=== PATIENT | female | born 1955 | race Caucasian/White ===

== ENCOUNTER 2018-11-18 15:10 | Inpatient (IN) ==
[2018-11-18] MEDS ORDERED: PHENERGAN IV PRN (15:43)
[2018-11-18] MEDS ORDERED: SODIUM CHLORIDE 0.9% INJ PRN (15:43)
[2018-11-18] MEDS: DUONEB (A & A) INH SCH ×3 (16:14→23:47)
[2018-11-18 16:29] LABS: BASO# 0.05 X1000 (0.0-0.2); BASO% 0.3 % (0.0-0.8); EOS# 1.03 X1000 (0.0-0.7); EOS% 6.6 % (0.0-10.0); HEMATOCRIT 42.1 % (37.0-47.0); IMM GRAN% 0.3 % (0.0-0.5); LYMPH# 1.55 X1000 (1.2-3.4); MCHC 33.3 g/dL (33-37); MCV 90.3 FL (81-99); MONO# 1.24 X1000 (0.11-0.59); MPV 9.8 FL (7.4-10.4); NEUT% 74.8 % (42.2-75.2); PLT 261 X1000 (130-400); RBC 4.66 XMIL (4.2-5.4); RDW 13.6 % (11.5-14.5); WBC 15.51 X1000 (4.8-10.8)
[2018-11-18 16:30] LABS: IMM GRAN# 0.04 X1000 (0.0-0.04)
[2018-11-18] MEDS: SOLU-MEDROL IV SCH (17:07)
[2018-11-18] MEDS: LOVENOX SUBQ SCH (17:08)
[2018-11-18] MEDS: LEVAQUIN 500 MG/D5W 500 MG/100 ML IVPB IV SCH (17:09)
[2018-11-18] MEDS: NS 1,000 ML IV SCH (17:09)
[2018-11-18 17:10] LABS: AGAP 16; BUN 16 mg/dL (8-22); CALCIUM 9.7 mg/dL (8.8-10.2); CHLORIDE 99 mmol/L (98-107); COSMO 277; CREATININE 0.6 mg/dL (0.5-0.9); ESTIMATED GFR > 60; GLUCOSE 95 mg/dL (70-104); POTASSIUM 4.2 mmol/L (3.5-5.1); SODIUM 138 mmol/L (136-145); TCO2 23 mmol/L (25-35)
[2018-11-18] MEDS: CELEBREX PO SCH (20:17)
[2018-11-18] MEDS: DESYREL PO PRN (20:17)
[2018-11-18] MEDS: TYLENOL PO PRN (20:17)
[2018-11-19] MEDS: SOLU-MEDROL IV SCH ×3 (00:15→16:47)
[2018-11-19] MEDS: DUONEB (A & A) INH SCH ×5 (02:48→21:40)
[2018-11-19] MEDS: SYNTHROID PO SCH (08:48)
[2018-11-19] MEDS: CELEBREX PO SCH ×3 (08:48→21:22)
[2018-11-19] MEDS: ESTRACE PO SCH (08:48)
[2018-11-19] MEDS: CELEXA PO SCH (08:49)
--- NOTE | 2018-11-19 08:58 | PROGRESS NOTE ---
DATE: 11/19/2018 SUBJECTIVE: Mrs. Russell was admitted to [facility] with acute respiratory failure with mycoplasma pneumonia. She is maintaining O2 saturations of 94% to 95% on 2 L of O2. She reports that she is breathing a little bit better this morning. She has less wheezing on exam. She continues with a persistent nonproductive cough and pleuritic chest pain. She feels very anxious and jittery on the nebulizer treatments. OBJECTIVE: Vital Signs: Temperature 98 degrees, pulse 106, respirations 16, BP 145/75. CV: Tachycardic. Regular S1, S2. Lungs: Diffuse end-expiratory wheezing throughout all lung galvan. There is improved air movement as compared to admission. Abdomen: Soft, nontender, with active bowel sounds. Extremities: Without edema. ASSESSMENT AND PLAN: 1. Acute respiratory failure with hypoxia secondary to walking pneumonia. We will back down on the frequency of DuoNeb nebulizer treatments to every 6 hours. Continue intravenous steroids and intravenous antibiotics. I will recheck a PA and lateral chest x-ray in the morning. We will try to wean her off oxygen as tolerated. 2. Primary hypothyroidism. We will continue levothyroxine 75 mcg daily. cc: Maggie Clarke MD
--- NOTE | 2018-11-19 09:08 | HISTORY AND PHYSICAL ---
CHIEF COMPLAINT: Shortness of breath and cough. HISTORY OF PRESENT ILLNESS: Ms. Kristin Russell is a 63-year-old, lady with a longstanding history of depression and primary hypothyroidism, who is well known to me. She presented to the office with a 24-hour history of a persistent nonproductive cough, pleuritic chest pain with deep inspiration and paroxysms of cough, shortness of breath, increased work of breathing, low-grade fever and chills. She denied any nausea, vomiting or diarrhea. Her O2 saturation was 88% on room air in my office. On examination, she was not moving air very well at all and had diffuse end-expiratory wheezing throughout all lung galvan. She has no previous history of asthma or COPD, and she has never smoked. Her chest x-ray demonstrated clear lung galvan. PAST MEDICAL HISTORY: Depression, primary hypothyroidism. PAST SURGICAL HISTORY: Hysterectomy, exploratory laparotomy, . ALLERGIES: No known drug allergies. FAMILY HISTORY: Noncontributory. MEDICATIONS: Celebrex 100 mg b.i.d., Celexa 40 mg daily, estradiol 0.5 mg daily, levothyroxine 75 mcg daily. SOCIAL HISTORY: She does not smoke. She does consume alcoholic beverages. She is and lives with her spouse. She is a retired middle school art teacher. REVIEW OF SYSTEMS: General: She denies any recent weight gain or weight loss. HEENT: No loss of visual or auditory acuity. CV: No chest pain, palpitations, or anginal equivalents. Pulmonary: See HPI. GI: No reflux, dysphagia, melena, hematochezia, change in bowel habits, or rectal bleeding. Endocrine: No polyuria, no polydipsia. No cold or heat intolerance. Skin: No easy bruisability. : No leakage of urine with coughing or laughing. Neurologic: Nonfocal. PHYSICAL EXAMINATION: VITAL SIGNS: Temperature 99.1 degrees, pulse 76, respiratory rate 24, BP 124/76. GENERAL: This is an acutely ill-appearing, 63-year-old lady in mild distress secondary to shortness of breath. HEENT: Fundi with sharp disks and vessels. Pupils equal, round, reactive to light. Extraocular eye movements intact. TMs without bullae. NECK: Supple. No masses, JVD or bruits. CV: Regular rate and rhythm. LUNGS: Diffuse end-expiratory wheezing throughout all lung galvan. There is poor air movement. ABDOMEN: Soft, nontender, with active bowel sounds. No hepatosplenomegaly. No abdominal bruits. EXTREMITIES: Without edema. SKIN: No palpable purpura. BREASTS, [employer] AND RECTAL EXAMS: Deferred. NEUROLOGIC: Nonfocal. LABS: A CBC demonstrated a leukocytosis of 15,000, hemoglobin 14.0, hematocrit 42.1 and a left shift. Electrolytes demonstrate the following: Sodium 138, potassium 4.2, chloride 99, CO2 23, BUN 16, creatinine 0.6. ASSESSMENT AND PLAN: 1. Acute respiratory failure with hypoxia secondary to walking pneumonia. I suspect that she has mycoplasma pneumoniae-induced pneumonia. I will admit her to [facility]. I will begin oxygen at 2 liters per nasal cannula to maintain oxygen saturations greater than 92%, Solu-Medrol 80 mg intravenous every 8 hours, DuoNeb nebulizer treatments every 4 hours and intravenous Levaquin 500 mg daily. 2. Primary hypothyroidism. We will continue levothyroxine 75 mcg daily. 3. Depression. Moods are stable. We will continue Celexa 40 mg daily. Given her clinical presentation and comorbid conditions, I believe that admission to the hospital is necessary. She was hypoxic in my office. She had diffuse end-expiratory wheezing. She certainly was at high risk for worsening respiratory failure. At this point in time, I anticipate that she will be in the hospital for at least 2 midnights, and I will therefore place her in inpatient status. I will begin Lovenox 40 mg subcutaneously daily for deep vein thrombosis prophylaxis. cc: Maggie Clarke MD
[2018-11-19] MEDS: TYLENOL PO PRN ×2 (09:10→15:35)
[2018-11-19] MEDS: LOVENOX SUBQ SCH (15:29)
[2018-11-19] MEDS: LEVAQUIN 500 MG/D5W 500 MG/100 ML IVPB IV SCH (16:47)
[2018-11-19] MEDS: NS 1,000 ML IV SCH ×2 (21:21)
[2018-11-20] MEDS: SOLU-MEDROL IV SCH (01:09)
[2018-11-20] MEDS: DUONEB (A & A) INH SCH ×4 (03:30→21:21)
[2018-11-20 06:02] LABS: BASO# 0.01 X1000 (0.0-0.2); HEMATOCRIT 36.9 % (37.0-47.0); HEMOGLOBIN 12.2 g/dL (12.0-16.0); IMM GRAN# 0.16 X1000 (0.0-0.04); IMM GRAN% 0.7 % (0.0-0.5); LYMPH# 0.71 X1000 (1.2-3.4); LYMPH% 2.9 % (20.5-51.1); MCH 30.3 PG (27-31); MCHC 33.1 g/dL (33-37); MCV 91.6 FL (81-99); MONO% 3.3 % (1.7-9.3); NEUT# 22.39 X1000 (1.4-6.5); NEUT% 93.1 % (42.2-75.2); PLT 263 X1000 (130-400); RBC 4.03 XMIL (4.2-5.4); RDW 14.1 % (11.5-14.5); WBC 24.07 X1000 (4.8-10.8)
[2018-11-20 06:27] LABS: LYMPHS 8 % (21-51); MONO 4 % (1-9); SEGS 88 % (42-75)
[2018-11-20] MEDS ORDERED: SALINE LOCK IV FLUID XX ONE (08:44)
[2018-11-20] MEDS: CELEBREX PO SCH ×2 (08:59→21:06)
[2018-11-20] MEDS: ESTRACE PO SCH (09:00)
[2018-11-20] MEDS: SYNTHROID PO SCH (09:00)
[2018-11-20] MEDS: CELEXA PO SCH (09:00)
--- NOTE | 2018-11-20 09:25 | Diag Imaging Result Doc PS360 ---
CHEST-2 VIEWS - 11/20/2018 INDICATION: cough COMPARISON: 11/18/2018 FINDINGS: There are trace bilateral pleural effusions. There is some strandy infiltrate in the left lower lobe and probably the lingula. This all appears grossly stable from prior. Heart size is normal. IMPRESSION: Infiltrates probably bronchopneumonia in the left lung base. Trace bilateral pleural effusions. Electronically signed by Jeancarlos Lanier 11/20/2018 9:23 AM
--- NOTE | 2018-11-20 10:10 | PROGRESS NOTE ---
DATE: 11/20/2018 Ms. Russell was admitted to [facility] with acute respiratory failure secondary to atypical pneumonia. She is breathing more comfortably. We have been able to wean her off O2 and her O2 sats are ranging from 93% to 96% on room air. She continues with a cough productive of yellowish sputum, mild pleuritic chest pain and occasional wheezing. Her white count has jumped from 15,000 to 24,000. She denies any nausea or vomiting or diarrhea.Vital Signs: Temperature 97.5 degrees, pulse 96, respirations 16, BP 145/65. CV: Regular rate and rhythm. Lungs: Faint crackles in the bases bilaterally with occasional end-expiratory wheezing. Abdomen: Soft, nontender, with active bowel sounds. Extremities: Without edema. ASSESSMENT AND PLAN: Acute respiratory failure with atypical pneumonia. It is bothersome to me that her white count has jumped from 15,000 to 24,000. That may be a reflection of the steroids. I am going to reduce the Solu-Medrol to 40 mg IV q.12 hours. I will recheck a PA and lateral chest x-ray. Certainly there is a possibility that a consolidated pneumonia has flushed out and we may need to broaden her antibiotics. I will check a sputum culture. Blood cultures are negative. We will also Hep-Lock her fluids. cc: Maggie Clarke MD
[2018-11-20] MEDS: ZOSYN 4.5 GM in NS 100 ML IV SCH ×3 (12:05→21:10)
[2018-11-20 12:10] LABS: URINE SOURCE CLEAN CATCH
[2018-11-20 12:23] LABS: BILIRUBIN URINE NEGATIVE (NEGATIVE); BLOOD URINE TRACE (NEGATIVE); COLOR YELLOW; GLUCOSE URINE 500 mg/dL (NEGATIVE); KETONE URINE NEGATIVE (NEGATIVE); LEUKOCYTES URINE NEGATIVE (NEGATIVE); NITRITE URINE NEGATIVE (NEGATIVE); PROTEIN URINE NEGATIVE (NEGATIVE); TURBIDITY URINE CLEAR (CLEAR); UROBILINOGEN URINE NORMAL (NORMAL)
[2018-11-20 12:24] LABS: UR EPITHELIAL CELLS <10 /HPF (<10); URINE BACTERIA NEGATIVE /HPF; URINE RBC <10 /HPF (<10); URINE WBC <10 /HPF (<10)
[2018-11-20 12:33] LABS: INR 0.96; PROTIME 12.8 Seconds (11.0-16.0)
[2018-11-20 12:51] LABS: AGAP 16; ALB/GLOB RATIO 1.5; ALBUMIN 4.1 g/dL (3.5-5.0); ALKALINE PHOSPHATASE 84 U/L (32-104); BUN 18 mg/dL (8-22); CALCIUM 9.6 mg/dL (8.8-10.2); CHLORIDE 106 mmol/L (98-107); CK PROFILE 134 U/L (24-173); COSMO 287; CREATININE 0.7 mg/dL (0.5-0.9); ESTIMATED GFR > 60; GLUCOSE 104 mg/dL (70-104); GOT 17 U/L (10-30); GPT 22 U/L (10-36); POTASSIUM 3.6 mmol/L (3.5-5.1); SODIUM 143 mmol/L (136-145); TCO2 21 mmol/L (25-35); TOTAL BILIRUBIN < 0.15 mg/dL (0.20-1.00); TOTAL PROTEIN 6.8 g/dL (6.3-8.3)
[2018-11-20] MEDS ORDERED: SOLU-MEDROL IV SCH (13:00)
[2018-11-20] MEDS: LOVENOX SUBQ SCH (17:37)
[2018-11-20] MEDS: LEVAQUIN 500 MG/D5W 500 MG/100 ML IVPB IV SCH (17:38)
[2018-11-20] MEDS: TYLENOL PO PRN (17:41)
[2018-11-20] MEDS: DESYREL PO PRN (21:09)
[2018-11-20] MEDS: NS 1,000 ML IV SCH (22:21)
[2018-11-21] MEDS: SOLU-MEDROL IV SCH ×2 (00:19→13:16)
[2018-11-21] MEDS: ZOSYN 4.5 GM in NS 100 ML IV SCH ×5 (03:36→21:32)
[2018-11-21] MEDS: DUONEB (A & A) INH SCH ×4 (03:47→22:33)
[2018-11-21] MEDS: CELEBREX PO SCH ×2 (08:36→21:32)
[2018-11-21] MEDS: CELEXA PO SCH (08:36)
[2018-11-21] MEDS: SYNTHROID PO SCH (08:36)
[2018-11-21] MEDS: ESTRACE PO SCH (08:37)
[2018-11-21] MEDS ORDERED: LASIX PO SCH (09:00)
[2018-11-21] MEDS: TYLENOL PO PRN ×2 (09:03→18:45)
--- NOTE | 2018-11-21 09:13 | PROGRESS NOTE ---
DATE: 11/21/2018 SUBJECTIVE: Mrs. Russell was admitted to [facility] with acute respiratory failure secondary to atypical pneumonia. Yesterday, her white count jumped from 15,000 to 24,000. She was tachycardic. Chest x-ray demonstrated a new left lower lobe infiltrate. We initiated the sepsis protocol and added intravenous Zosyn to the IV Levaquin that she was already taking. Clinically, she reports that she feels much better this morning. She slept comfortably last night. She is maintaining O2 saturations of 97% to 98% on room air. She still has a cough productive of clear to yellowish sputum. She denies any nausea or vomiting. Initial blood cultures from admission were negative. A new set of blood cultures are pending. Her lactic acid was mildly elevated. She is hemodynamically stable. Systolic blood pressures are ranging from 128 to 149 whereas her diastolic blood pressures are ranging from 70 to 90. She denies any chest pain, palpitations, or anginal equivalents. She is with complaint of increasing reflux and sour brash but denies any dysphagia, melena or hematochezia. OBJECTIVE: Vital signs: Temperature 97.5 degrees, pulse 73, respirations 18, blood pressure 149/70. CV: Regular rate and rhythm. Lungs: Faint crackles in the left base. Abdomen: Soft, nontender, with active bowel sounds. Extremities: Without edema. ASSESSMENT AND PLAN: 1. Acute respiratory failure with hypoxia, resolved, secondary to community-acquired pneumonia with sepsis syndrome. We will continue DuoNeb nebulizer treatments, IV Solu-Medrol and broad- spectrum antibiotics including Zosyn and Levaquin. I will recheck a CBC with diff, BMP, as well as a PA and lateral chest x-ray in the morning. 2. Gastroesophageal reflux disease. We will elevate the head of the bed to 45 degrees and begin omeprazole 40 mg daily. cc: Maggie Clarke MD
[2018-11-21] MEDS: NS 1,000 ML IV SCH (11:01)
[2018-11-21] MEDS: LOVENOX SUBQ SCH (17:04)
[2018-11-21] MEDS: LEVAQUIN 500 MG/D5W 500 MG/100 ML IVPB IV SCH (18:35)
[2018-11-21] MEDS ORDERED: CELEBREX PO SCH (21:00)
[2018-11-21] MEDS: DESYREL PO PRN (21:43)
[2018-11-22] MEDS: SOLU-MEDROL IV SCH (00:33)
[2018-11-22] MEDS: DUONEB (A & A) INH SCH ×4 (03:30→22:25)
[2018-11-22] MEDS: PRILOSEC PO SCH ×2 (05:47→06:09)
[2018-11-22] MEDS: ZOSYN 4.5 GM in NS 100 ML IV SCH ×4 (05:47→22:11)
[2018-11-22 06:39] LABS: HEMATOCRIT 36.7 % (37.0-47.0); HEMOGLOBIN 12.1 g/dL (12.0-16.0); MCH 30.1 PG (27-31); MCV 91.3 FL (81-99); MPV 9.8 FL (7.4-10.4); RBC 4.02 XMIL (4.2-5.4); RDW 14.1 % (11.5-14.5); WBC 14.34 X1000 (4.8-10.8)
[2018-11-22 07:25] LABS: AGAP 14; BUN 21 mg/dL (8-22); CALCIUM 7.7 mg/dL (8.8-10.2); CHLORIDE 102 mmol/L (98-107); COSMO 283; CREATININE 0.7 mg/dL (0.5-0.9); ESTIMATED GFR > 60; GLUCOSE 146 mg/dL (70-104); POTASSIUM 3.9 mmol/L (3.5-5.1); SODIUM 139 mmol/L (136-145); TCO2 23 mmol/L (25-35)
[2018-11-22] MEDS: ESTRACE PO SCH (08:10)
[2018-11-22] MEDS: CELEBREX PO SCH ×2 (08:10→22:12)
[2018-11-22] MEDS: SYNTHROID PO SCH (08:11)
[2018-11-22] MEDS: CELEXA PO SCH (08:11)
[2018-11-22] MEDS: TYLENOL PO PRN (08:17)
--- NOTE | 2018-11-22 08:30 | PROGRESS NOTE ---
DATE: 11/22/2018 SUBJECTIVE: Ms. Russell was admitted to [facility] with acute respiratory failure with hypoxia secondary to community-acquired pneumonia with sepsis. Repeat blood cultures from 11/20/2018 are negative. She only has a minimally nonproductive cough. She is breathing comfortably. She is maintaining O2 cysts saturations of 95 to 99 percent on room air. Her most recent chest x-ray showed a left lower lobe infiltrate. [place] [id number] to [id number]. Since resuming Prilosec, she has not had any refractory reflux, sour brash or epigastric discomfort. OBJECTIVE: Vital signs: Temperature 98 degrees, pulse 90, respirations 18, blood pressure 142/67. Cardiovascular: Regular rate and rhythm. Lungs: Clear. Abdomen: Soft, nontender, with active bowel sounds. ASSESSMENT AND PLAN: Acute respiratory failure with hypoxia secondary to community-acquired pneumonia with sepsis. Clinically she continues to improve. She is maintaining good oxygen levels off oxygen. [place] [address] to [id number]. We will continue Levaquin and Zosyn. I will recheck a PA and lateral chest x-ray today. If she remains afebrile and her white count normalizes, I hope to be able to discharge her home tomorrow. cc: Maggie Clarke MD
--- NOTE | 2018-11-22 09:51 | Diag Imaging Result Doc PS360 ---
EXAM: CHEST-2 VIEWS 11/22/2018 HISTORY: community acquired pneumonia TECHNIQUE: PA and lateral chest COMMENT: There is ill-defined opacity present in the left base. There is apical pleural scarring bilaterally. There is blunting of the costophrenic angles posteriorly bilaterally. Compared to 11/20/2018 there has been no appreciable change. IMPRESSION: Bronchopneumonia. Bilateral pleural effusions. Electronically signed by Ky Gilbert 11/22/2018 9:48 AM
[2018-11-22] MEDS: NS 1,000 ML IV SCH (12:31)
[2018-11-22] MEDS: LOVENOX SUBQ SCH (15:49)
[2018-11-22] MEDS: LEVAQUIN 500 MG/D5W 500 MG/100 ML IVPB IV SCH (17:01)
[2018-11-23] MEDS: DUONEB (A & A) INH SCH ×4 (03:55→21:25)
[2018-11-23] MEDS: NS 1,000 ML IV SCH (04:55)
[2018-11-23] MEDS: ZOSYN 4.5 GM in NS 100 ML IV SCH ×4 (04:57→22:03)
[2018-11-23] MEDS: PRILOSEC PO SCH (06:52)
[2018-11-23 07:28] LABS: HEMATOCRIT 36.6 % (37.0-47.0); HEMOGLOBIN 12.1 g/dL (12.0-16.0); MCHC 33.1 g/dL (33-37); MCV 90.8 FL (81-99); MPV 9.4 FL (7.4-10.4); RBC 4.03 XMIL (4.2-5.4); RDW 13.9 % (11.5-14.5); WBC 14.11 X1000 (4.8-10.8)
[2018-11-23] MEDS: CELEBREX PO SCH ×2 (08:26→22:03)
[2018-11-23] MEDS: CELEXA PO SCH (08:26)
[2018-11-23] MEDS: ESTRACE PO SCH (08:26)
[2018-11-23] MEDS: SYNTHROID PO SCH (08:26)
[2018-11-23] MEDS ORDERED: LASIX IV ONE (10:16)
--- NOTE | 2018-11-23 11:03 | PROGRESS NOTE ---
DATE: 11/23/2018 SUBJECTIVE: Mrs. Russell was admitted to [facility] with acute respiratory failure with hypoxia secondary to community-acquired pneumonia with sepsis. Chest x-rays demonstrate small bilateral pleural effusions and a persistent left lower infiltrate, which is largely unchanged. Repeat blood cultures are negative. A sputum culture is negative. She continues with a persistent nonproductive cough that occurs in spells. She is breathing comfortably. She is maintaining O2 saturations of 95% to 97% on room air. OBJECTIVE: Vital Signs: She is afebrile, pulse 73, respirations 14, BP 146/67. CV: Regular rate and rhythm. Lungs: Faint crackles in the left base. Abdomen: Soft, nontender, with active bowel sounds. ASSESSMENT AND PLAN: Community-acquired pneumonia with sepsis. The acute respiratory failure with hypoxia has resolved. Sputum cultures are negative. Repeat blood cultures are negative. I am going to Hep-Lock the fluids. We will stop telemetry. Her white count remains at 14,000. I really would like to see the white count below 10,000. We will continue Levaquin and Zosyn today. I will give her a one-time bolus of Lasix 40 mg intravenously x1 dose. cc: Maggie Clarke MD
[2018-11-23] MEDS: LOVENOX SUBQ SCH (16:20)
[2018-11-23] MEDS: LEVAQUIN 500 MG/D5W 500 MG/100 ML IVPB IV SCH (17:24)
[2018-11-23] MEDS: DESYREL PO PRN (22:03)
[2018-11-24] MEDS: DUONEB (A & A) INH SCH ×2 (03:54→07:56)
[2018-11-24] MEDS: ZOSYN 4.5 GM in NS 100 ML IV SCH ×2 (04:43→09:41)
[2018-11-24] MEDS: PRILOSEC PO SCH ×2 (05:58→08:03)
[2018-11-24 08:10] VITALS: BP 145/62
[2018-11-24] MEDS: ESTRACE PO SCH (08:51)
[2018-11-24] MEDS: SYNTHROID PO SCH (08:51)
[2018-11-24] MEDS: CELEXA PO SCH (08:51)
[2018-11-24] MEDS: CELEBREX PO SCH (08:51)
[2018-11-24 09:56] LABS: HEMATOCRIT 40.1 % (37.0-47.0); HEMOGLOBIN 13.3 g/dL (12.0-16.0); MCH 30.6 PG (27-31); MCHC 33.2 g/dL (33-37); MCV 92.2 FL (81-99); MPV 8.9 FL (7.4-10.4); RBC 4.35 XMIL (4.2-5.4); RDW 13.9 % (11.5-14.5); WBC 13.98 X1000 (4.8-10.8)
[2018-11-24] MEDS ORDERED: LEVAQUIN PO SCH (17:00)
--- NOTE | 2018-12-12 14:41 | DISCHARGE SUMMARY ---
ADMISSION DATE: 11/18/2018 DISCHARGE DATE: 11/24/2018 DISCHARGE DIAGNOSES: 1. Acute respiratory failure with hypoxia. 2. Community-acquired bacterial pneumonia. 3. Sepsis syndrome secondary to underlying bacterial pneumonia. 4. Primary hypothyroidism. 5. Major depression. DISCHARGE INSTRUCTIONS: 1. Return to clinic in one week to see me, Dr. Vik Clarke, in anticipation of a transition of care visit. 2. Activity as tolerated. 3. Healthy heart diet. 4. Medications: Trazodone 50 mg at bedtime p.r.n. insomnia, Levaquin 750 mg daily for 5 days, omeprazole 40 mg daily, Estrace 0.5 mg daily, Celexa 40 mg daily, Celebrex 100 mg b.i.d. DISCHARGE PHYSICAL EXAMINATION: This is a well-developed, well-nourished, 63-year-old, lady in no apparent distress. Temperature 98 degrees, pulse 75, respirations 16, BP 145/62. CV: Regular rate and rhythm. Lungs: Clear. Abdomen: Soft, nontender, with active bowel sounds. Mrs. Kristin Russell presented to my office with a 24-hour history of a persistent nonproductive cough, pleuritic chest pain with deep inspiration and fits of coughing, shortness of breath, increased work of breathing, low-grade fever and chills. Her O2 saturation on room air in my office was 88%. She had diffuse expiratory wheezing throughout all lung galvan. Her chest x-ray was negative. She also had a leukocytosis of 15,000. We felt that in all likelihood, she had acute respiratory failure with hypoxia secondary to atypical pneumonia. I suspected that she most likely had mycoplasma induced pneumonia. We admitted her to [facility]. We treated her with supplemental O2 to maintain O2 saturations greater than 92%. Intravenous Solu-Medrol and DuoNeb nebulizer treatments and intravenous Levaquin. On hospital day #2, she reported that she was breathing more comfortably. Her O2 saturations were in the range of 94% to 95% on 2 L of O2. She continued with a persistent nonproductive cough. Because of the increased nervousness, we reduced the dosage of DuoNeb from q. 4 hours to q. 6 hours. On 11/20/2018, she was continuing with persistent cough that was now productive of yellowish sputum, pleuritic chest pain and had more shortness of breath. Her white count has jumped from 15,000 to 24,000. She was tachypneic. She was tachycardic. A chest x-ray demonstrated a new left lower lobe infiltrate. We were concerned that she now had underlying sepsis syndrome. We initiated the sepsis protocol. We redrew blood cultures and added intravenous Zosyn. Over the course of the next several days, she continued to improve. We were gradually able to wean her off oxygen, IV Solu-Medrol, and continued broad-spectrum antibiotics. Her sputum culture was negative. Repeat blood cultures were negative. As she continued to improve, we felt that she was stable for discharge. On 11/24/2018, she was discharged on oral Levaquin. We will arrange for her to have a follow up pneumonia vaccination as an outpatient. Having reached maximum hospital benefit, the patient was discharged in stable condition. cc: Maggie Clarke MD
== END 2018-11-24 11:31 | disposition home or self-care (01) | DRG 871 ==
LOC: DIRADM 15:10 → EDIPHOLD 15:33 → 1N 18:15
PROVIDERS: ADMIT Internal Medicine; ATTEND Internal Medicine